=== PATIENT | male | born 1990 ===

== ENCOUNTER 2024-08-10 22:32 | Emergency (ER) | payer BC ==
[2024-08-10] MEDS: Methocarbamol 750 MG Tab PO STA (23:41)
[2024-08-10] MEDS: traMADol 50 MG Tab PO STA (23:41)
[2024-08-10] MEDS: Triamcinolone Acetonide 40 MG/ML 1 ML SDV INJECT STA (23:41)
== END 2024-08-11 00:26 | disposition home or self-care (01) ==
LOC: MW.ED 22:32
DX: M54.50 Low back pain, unspecified (principal); Z75.8 Other problems related to medical facilities and other health care
CPT/HCPCS: 96372; 99283; A9270; J3301